=== PATIENT | male | born 1965 | race African-American/Black ===

== ENCOUNTER 2020-03-11 18:06 | Emergency (ER) | payer MEDICAID ==
[~2020-03-11] VITALS: Ht 175.3 cm; Wt 63.0 kg
[2020-03-11] MEDS ORDERED: KETOROLAC 30MG/ML VIAL IV STA (18:37)
[2020-03-11] MEDS ORDERED: SODIUM CHLORIDE 0.9% 1,000 ML IV ONE (18:37)
[2020-03-11 19:00] LABS: CHLORIDE 109 mEq/L (98-107)
[2020-03-11 19:02] LABS: INR 1.1; PROTHROMBIN TIME 11.9 sec (9.6-11.0)
[2020-03-11 19:06] LABS: BASOPHILS % 0.6 % (0.0-2.0); EOSINOPHILS % 0.3 % (0.0-5.0); HEMATOCRIT. 39.4 % (42.0-52.0); HEMOGLOBIN. 13.2 g/dL (14.0-18.0); LYMPHOCYTES % 33.5 % (20.0-50.0); MEAN CORPUSCULAR HEMOGLOBIN 31.5 pg (28.0-32.0); MEAN CORPUSCULAR VOLUME 94.1 fL (80.0-94.0); MEAN PLATELET VOLUME 8.7 fl (7.4-10.4); MONOCYTES % 10.2 % (2.0-8.0); NEUTROPHILS % 55.4 % (40.0-76.0); PLATELET 240 x1000/uL (130-400); RED BLOOD CELL COUNT 4.19 mill/uL (4.7-6.1); RED CELL DISTRIBUTION WIDTH 14.2 % (11.6-14.6)
[2020-03-11 19:12] LABS: CLARITY URINE CLOUDY (CLEAR); COLOR URINE DARK YELLOW (YELLOW); KETONES URINE 1+ (NEGATIVE); LEUKOCYTE ESTERASE URINE TRACE (NEGATIVE); NITRITE URINE NEGATIVE (NEGATIVE); OCCULT BLOOD URINE NEGATIVE (NEGATIVE); PROTEIN URINE 2+ (NEGATIVE); SPECIFIC GRAVITY URINE 1.031 (1.005-1.030)
[2020-03-11 19:28] LABS: *BARBITURATES SCREEN URINE NEGATIVE (NEGATIVE); *BENZODIAZEPINES SCREEN URINE NEGATIVE (NEGATIVE); *COCAINE SCREEN URINE NEGATIVE (NEGATIVE)
[2020-03-11 19:29] LABS: *AMPHETAMINES SCREEN URINE PRESUMTIVE POSITIVE (NEGATIVE); CANNABINOID URINE SCREEN NEGATIVE (NEGATIVE); METHADONE URINE SCREEN NEGATIVE (NEGATIVE); OPIATES URINE SCREEN NEGATIVE (NEGATIVE); PHENCYCLIDINE URINE SCREEN NEGATIVE (NEGATIVE)
[2020-03-11 19:30] VITALS: BP 97/56
== END 2020-03-11 21:40 | disposition home or self-care (01) ==
LOC: ER 18:06
DX: N28.9 Disorder of kidney and ureter, unspecified (principal); Z98.890 Other specified postprocedural states
CPT/HCPCS: 36415; 76770; 80053; 80305; 81003; 83690; 85025; 85610; 96374; 99284; J1885; J7030

== ENCOUNTER 2020-11-11 18:13 | Emergency (ER) | payer MEDICAID ==
[~2020-11-11] VITALS: Ht 180.3 cm; Wt 68.0 kg
[2020-11-11] MEDS ORDERED: HYDR-4233 TP (18:42)
[2020-11-11 19:14] VITALS: BP 122/77
== END 2020-11-11 19:15 | disposition home or self-care (01) ==
LOC: ER 18:13
DX: F22 Delusional disorders (principal)
CPT/HCPCS: 99283

== ENCOUNTER 2022-12-06 00:58 | Emergency (ER) | payer MEDICAID ==
[~2022-12-06] VITALS: Ht 165.1 cm; Wt 68.0 kg
[~2022-12-06 00:58] MED LIST: OLAN10TA72 MT; SULF1TAB47 MT
[2022-12-06 01:45] LABS: CLARITY URINE CLEAR (CLEAR); COLOR URINE YELLOW (YELLOW); KETONES URINE NEGATIVE (NEGATIVE); LEUKOCYTE ESTERASE URINE 1+ (NEGATIVE); NITRITE URINE NEGATIVE (NEGATIVE); OCCULT BLOOD URINE NEGATIVE (NEGATIVE); PH URINE 6.5 (4.5-8.0); PROTEIN URINE NEGATIVE (NEGATIVE); UROBILINOGEN URINE 0.2 E.U./dL (0.2-1.0)
[2022-12-06] MEDS ORDERED: TAMSULOSIN HCL 0.4MG SR CAPSULE PO ONE (01:45)
[2022-12-06] MEDS ORDERED: ACETAMINOPHEN 325MG TABLET PO ONE (01:45)
[2022-12-06] MEDS ORDERED: KETOROLAC 30MG/ML VIAL IM ONE (01:45)
[2022-12-06 02:30] VITALS: BP 159/120
[2022-12-06] MEDS ORDERED: TOPUD MT (04:00)
== END 2022-12-06 04:47 | disposition home or self-care (01) ==
LOC: ER 00:58
DX: R10.31 Right lower quadrant pain (principal); N13.30 Unspecified hydronephrosis; F15.10 Other stimulant abuse, uncomplicated; Z85.79 Personal history of other malignant neoplasms of lymphoid, hematopoietic and related tissues; Z21 Asymptomatic human immunodeficiency virus [HIV] infection status
CPT/HCPCS: 74176; 81003; 96372; 99285; J1885

== ENCOUNTER 2022-12-12 10:00 | Inpatient (IN) | payer MEDICAID ==
[2022-12-12] VITALS: BP 143/111
[~2022-12-12] VITALS: Ht 175.3 cm; Wt 59.4 kg
[~2022-12-12 10:00] MED LIST changes: +TOPUD MT
[2022-12-12] MEDS ORDERED: MORPHINE SULFATE 4 MG/ML CPJ (NOT FOR IM USE) IV ONE (10:45)
[2022-12-12 11:13] LABS: BASOPHILS % 0.5 % (0.0-2.0); EOSINOPHILS % 0.6 % (0.0-5.0); HEMATOCRIT. 32.5 % (42.0-52.0); HEMOGLOBIN. 10.3 g/dL (14.0-18.0); LYMPHOCYTES % 43.9 % (20.0-50.0); MEAN CORPUSCULAR HEMOGLOBIN 27.7 pg (28.0-32.0); MEAN CORPUSCULAR VOLUME 87.5 fL (80.0-94.0); MEAN PLATELET VOLUME 8.3 fl (7.4-10.4); MONOCYTES % 9.5 % (2.0-8.0); NEUTROPHILS % 45.5 % (40.0-76.0); PLATELET 274 x1000/uL (130-400); RED BLOOD CELL COUNT 3.71 mill/uL (4.7-6.1); RED CELL DISTRIBUTION WIDTH 14.8 % (11.6-14.6)
[2022-12-12 11:24] LABS: CHLORIDE 109 mEq/L (98-107)
[2022-12-12 11:28] LABS: INR 1.2
[2022-12-12] MEDS ORDERED: SODIUM CHLORIDE 0.9% 1,000 ML IV ONE (12:00)
[2022-12-12] MEDS ORDERED: CALCIUM GLUCONATE 100MG/ML 10ML VIAL IV ONE (12:15)
[2022-12-12] MEDS ORDERED: INSULIN REGULAR (HUMULIN R) 300UNITS/3ML VIAL IV ONE (12:15)
[2022-12-12] MEDS ORDERED: SODIUM POLYSTYRENE SULFONATE 15 G/60 ML BOT PO ONE (12:15)
[2022-12-12] MEDS ORDERED: DEXTROSE 50% WATER 50ML SYRINGE IV ONE (12:15)
[2022-12-12] MEDS ORDERED: CALCIUM GLUCONATE 2,000 MG in DEXT 5% WATER 90 ML IV NR (12:22)
[2022-12-12] MEDS: MORPHINE SULFATE 4 MG/ML CPJ (NOT FOR IM USE) IV SCH ×2 (12:36→13:15)
[2022-12-12] MEDS ORDERED: GUAIFENESIN 200MG/10ML SUGAR FREE UDC PO PRN (14:00)
[2022-12-12] MEDS ORDERED: ENOXAPARIN 40MG/0.4ML SYR SUBCUT SCH (14:00)
[2022-12-12] MEDS ORDERED: ONDANSETRON HCL 4MG/2ML INJ IV PRN (14:00)
[2022-12-12] MEDS ORDERED: DOCUSATE SODIUM 100MG CAPSULE PO PRN (14:00)
[2022-12-12] MEDS ORDERED: IPRATROPIUM/ALBUTEROL 0.5-3(2.5)MG/3ML NEB HHN PRN (14:00)
[2022-12-12] MEDS ORDERED: CLONIDINE 0.1MG TABLET PO PRN (14:00)
[2022-12-12 14:03] LABS: CLARITY URINE CLEAR (CLEAR); COLOR URINE YELLOW (YELLOW); KETONES URINE NEGATIVE (NEGATIVE); LEUKOCYTE ESTERASE URINE 1+ (NEGATIVE); NITRITE URINE NEGATIVE (NEGATIVE); OCCULT BLOOD URINE 1+ (NEGATIVE); PH URINE 7.5 (4.5-8.0); PROTEIN URINE NEGATIVE (NEGATIVE); SPECIFIC GRAVITY URINE 1.011 (1.005-1.030); UROBILINOGEN URINE 0.2 E.U./dL (0.2-1.0)
[2022-12-12 14:51] LABS: BG BASE EXCESS -3.9 mmol/L (-2.0-2.0); BG CARBOXYHEMOGLOBIN 0.4 % (0.5-1.5); BG DEOXYHEMOGLOBIN 1.8 % (0.0-5.0); BG FRACTION INSPIRED OXYGEN 100; BG HCO3 ACT 19.8 mmol/L (22.0-26.0); BG METHEMOGLOBIN 0.2 % (0.0-1.5); BG OXYGEN SATURATION 98.2 % (92.0-98.5); BG OXYHEMOGLOBIN 97.6 % (94.0-97.0); BG PCO2 31.8 mmHg (35.0-45.0); BG PH 7.413 (7.350-7.450); BG PO2 119.3 mmHg (75.0-100.0); BG SAMPLE SITE RIGHT BRACHIAL; BG TOTAL HEMOGLOBIN 11.8 g/dL (12.0-18.0); BG VENT MODE MASK - NRB
[2022-12-12] MEDS ORDERED: IPRATROPIUM/ALBUTEROL 0.5-3(2.5)MG/3ML NEB HHN NR (15:00)
[2022-12-12] MEDS ORDERED: FUROSEMIDE 40MG/4ML VIAL IVP NR (15:30)
[2022-12-12] MEDS ORDERED: PIPERACILLIN/TAZ 3.375G PREMIX 50 ML IV NR (15:45)
[2022-12-12] MEDS ORDERED: ACETAMINOPHEN 325MG TABLET PO PRN (17:30)
[2022-12-12] MEDS ORDERED: MORPHINE SULFATE 2 MG/ML CPJ (NOT FOR IM USE) IV PRN (17:30)
[2022-12-12] MEDS ORDERED: NALOXONE HCL 0.4MG/ML VIAL IV PRN (17:45)
[2022-12-12 18:48] LABS: PHOSPHORUS 5.3 mg/dL (2.5-4.9); TOTAL IRON BINDING CAPACITY 297 ug/dL (250-450)
[2022-12-12] MEDS: TAMSULOSIN HCL 0.4MG SR CAPSULE PO SCH (20:58)
[2022-12-12 22:03] LABS: *AMPHETAMINES SCREEN URINE NEGATIVE (NEGATIVE); *BARBITURATES SCREEN URINE NEGATIVE (NEGATIVE); *BENZODIAZEPINES SCREEN URINE NEGATIVE (NEGATIVE); *COCAINE SCREEN URINE NEGATIVE (NEGATIVE); CANNABINOID URINE SCREEN NEGATIVE (NEGATIVE); METHADONE URINE SCREEN NEGATIVE (NEGATIVE); OPIATES URINE SCREEN NEGATIVE (NEGATIVE); PHENCYCLIDINE URINE SCREEN NEGATIVE (NEGATIVE)
[2022-12-12 23:45] VITALS: BP 143/111
[2022-12-13] VITALS (9 sets, daily range): BP systolic 116–147; BP diastolic 82–108
[2022-12-13] MEDS ORDERED: PIPERACILLIN/TAZOBACTAM 3.375 G in DEXTROSE 5% WATER 50 ML IV SCH (03:00)
[2022-12-13] MEDS ORDERED: SODIUM POLYSTYRENE SULFONATE 15 G/60 ML BOT PO NR (09:00)
[2022-12-13 09:57] LABS: BASOPHILS % 0.6 % (0.0-2.0); EOSINOPHILS % 0.2 % (0.0-5.0); LYMPHOCYTES % 23.7 % (20.0-50.0); MEAN CORPUSCULAR VOLUME 86.7 fL (80.0-94.0); MEAN PLATELET VOLUME 8.7 fl (7.4-10.4); MONOCYTES % 10.2 % (2.0-8.0); NEUTROPHILS % 65.3 % (40.0-76.0); PLATELET 250 x1000/uL (130-400); RED BLOOD CELL COUNT 3.91 mill/uL (4.7-6.1); RED CELL DISTRIBUTION WIDTH 14.9 % (11.6-14.6)
[2022-12-13 10:15] LABS: CHLORIDE 108 mEq/L (98-107)
[2022-12-13 10:29] LABS: HDL CHOLESTEROL 42 mg/dL (40-59); LDL CHOLESTEROL 64 mg/dL (5-100); PHOSPHORUS 5.1 mg/dL (2.5-4.9); T4 FREE 1.15 ng/dL (0.76-1.46); TOTAL IRON BINDING CAPACITY 251 ug/dL (250-450)
[2022-12-13] MEDS: POLYETHYLENE GLYCOL 3350 (17GM) 1 DOSE PACK PO PRN ×3 (10:43→10:47)
[2022-12-13] MEDS: AZITHROMYCIN 500 MG TABLET PO SCH (10:43)
[2022-12-13] MEDS: PANTOPRAZOLE 40MG DR TABLET PO SCH (10:44)
[2022-12-13] MEDS ORDERED: IOHEXOL-350 100 ML BOTTLE ONE (14:34)
[2022-12-13] MEDS: SENNOSIDES/DOCUSATE SOD 8.6/50MG TABLET PO SCH ×2 (15:12→16:54)
[2022-12-13] MEDS: ENOXAPARIN 30MG/0.3ML SYR SUBCUT SCH (15:13)
[2022-12-13] MEDS ORDERED: ALBUTEROL (0.083%) 2.5MG/3ML NEB HHN PRN (15:15)
[2022-12-13] MEDS ORDERED: IPRATROPIUM BROMIDE (0.02%) 0.5MG/2.5ML NEB HHN PRN (15:15)
[2022-12-13] MEDS ORDERED: MAGNESIUM 2 G PREMIX 50 ML IV NR (16:00)
[2022-12-13] MEDS ORDERED: FUROSEMIDE 40MG/4ML VIAL IVP SCH (16:30)
[2022-12-13] MEDS: CARVEDILOL 6.25 MG TABLET PO SCH (21:02)
[2022-12-13] MEDS: TAMSULOSIN HCL 0.4MG SR CAPSULE PO SCH (21:02)
[2022-12-13] MEDS: PIPERACILLIN/TAZOBACTAM 3.375 G in DEXTROSE 5% WATER 50 ML IV SCH (21:25)
[2022-12-14] VITALS (12 sets, daily range): BP systolic 91–146; BP diastolic 50–96
[2022-12-14 09:07] LABS: % CD 3 POS. LYMPHOCYTES 91.4 % (57.5-86.2); % CD 4 POS. LYMPHOCYTES 9.6 % (30.8-58.5); ABSOLUTE CD 3 823 /uL (622-2402); ABSOLUTE CD 4 HELPER 86 /uL (359-1519); ABSOLUTE CD 8 SUPPRESSOR 720 /uL (109-897); ABSOLUTE LYMPHOCYTES 0.9 x10E3/uL (0.7-3.1); ABSOLUTE MONOCYTES 0.4 x10E3/uL (0.1-0.9); ABSOLUTE NEUTROPHILS 2.7 x10E3/uL (1.4-7.0); BASOPHILS 1 % (Not Estab.); CD4/CD8 RATIO 0.12 (0.92-3.72); HEMATOCRIT 32.5 % (37.5-51.0); HEMOGLOBIN 11.3 g/dL (13.0-17.7); IMMATURE GRANULOCYTES 0 % (Not Estab.); LYMPHOCYTES 23 % (Not Estab.); MEAN CORPUSCULAR HEMOGLOBIN 29.4 pg (26.6-33.0); MEAN CORPUSCULAR HGB CONC. 34.8 g/dL (31.5-35.7); MEAN CORPUSCULAR VOLUME 85 fL (79-97); MONOCYTES 10 % (Not Estab.); NEUTROPHILS 66 % (Not Estab.); PLATELETS 267 x10E3/uL (150-450); RBC 3.84 x10E6/uL (4.14-5.80); RED CELL DISTRIBUTION WIDTH 13.5 % (11.6-15.4); WBC 4.1 x10E3/uL (3.4-10.8)
[2022-12-14] MEDS: POLYETHYLENE GLYCOL 3350 (17GM) 1 DOSE PACK PO PRN (09:27)
[2022-12-14] MEDS: SENNOSIDES/DOCUSATE SOD 8.6/50MG TABLET PO SCH ×2 (09:28→17:12)
[2022-12-14] MEDS: PIPERACILLIN/TAZOBACTAM 3.375 G in DEXTROSE 5% WATER 50 ML IV SCH ×2 (09:28→21:13)
[2022-12-14] MEDS: AZITHROMYCIN 500 MG TABLET PO SCH (09:28)
[2022-12-14] MEDS: PANTOPRAZOLE 40MG DR TABLET PO SCH (09:28)
[2022-12-14] MEDS: CARVEDILOL 6.25 MG TABLET PO SCH (09:29)
[2022-12-14 10:36] LABS: HEMATOCRIT 32.7 % (42.0-52.0); HEMOGLOBIN 10.6 g/dL (14.0-18.0); MEAN CORPUSCULAR VOLUME 86.6 fL (80.0-94.0); PLATELET 266 x1000/uL (130-400); RED BLOOD CELL COUNT 3.78 mill/uL (4.7-6.1)
[2022-12-14 12:14] LABS: PHOSPHORUS 3.4 mg/dL (2.5-4.9)
[2022-12-14] MEDS: MAGNESIUM GLUCONATE 500MG TABLET PO SCH (12:29)
[2022-12-14] MEDS: ENOXAPARIN 30MG/0.3ML SYR SUBCUT SCH ×2 (14:30→17:13)
[2022-12-14] MEDS: SULFAMETHOXAZOLE/TRIMETHOPRIM 400/80MG TAB PO SCH (17:12)
[2022-12-14] MEDS: TAMSULOSIN HCL 0.4MG SR CAPSULE PO SCH (21:00)
[2022-12-14] MEDS: CARVEDILOL 12.5MG TABLET PO SCH (21:14)
[2022-12-15 03:08] VITALS: BP 105/62
[2022-12-15] MEDS: PANTOPRAZOLE 40MG DR TABLET PO SCH (05:46)
[2022-12-15 08:00] VITALS: BP 100/76
[2022-12-15] MEDS: SENNOSIDES/DOCUSATE SOD 8.6/50MG TABLET PO SCH ×2 (09:00→16:31)
[2022-12-15] MEDS: CARVEDILOL 12.5MG TABLET PO SCH (09:00)
[2022-12-15] MEDS: DUTASTERIDE 0.5MG CAPSULE PO SCH (09:30)
[2022-12-15] MEDS: PIPERACILLIN/TAZOBACTAM 3.375 G in DEXTROSE 5% WATER 50 ML IV SCH (09:30)
[2022-12-15] MEDS: FUROSEMIDE 40MG TABLET PO SCH (09:31)
[2022-12-15] MEDS: AZITHROMYCIN 500 MG TABLET PO SCH (09:31)
[2022-12-15] MEDS: MAGNESIUM GLUCONATE 500MG TABLET PO SCH (11:28)
[2022-12-15 12:00] VITALS: BP 114/70
[2022-12-15 13:09] LABS: HEMATOCRIT 32.6 % (42.0-52.0); HEMOGLOBIN 10.4 g/dL (14.0-18.0); MEAN CORPUSCULAR HEMOGLOBIN 27.9 pg (28.0-32.0); MEAN CORPUSCULAR VOLUME 87.9 fL (80.0-94.0); PLATELET 261 x1000/uL (130-400); RED BLOOD CELL COUNT 3.71 mill/uL (4.7-6.1); RED CELL DISTRIBUTION WIDTH 14.9 % (11.6-14.6)
[2022-12-15] MEDS ORDERED: DUTA0.5C2 PO (14:27)
[2022-12-15] MEDS ORDERED: COR12 PO (14:27)
[2022-12-15] MEDS ORDERED: SULF-292 PO (14:27)
[2022-12-15] MEDS ORDERED: FURO40TA5 PO (14:27)
[2022-12-15] MEDS ORDERED: ALBU6.7H3 INH (14:27)
[2022-12-15] MEDS: ENOXAPARIN 30MG/0.3ML SYR SUBCUT SCH (14:30)
[2022-12-15] MEDS: PIPERACILLIN/TAZOBACTAM 3.375G in DEXT 5% WATER 50ML IV SCH ×2 (15:33→23:44)
[2022-12-15 16:00] VITALS: BP 105/67
[2022-12-15] MEDS: SULFAMETHOXAZOLE/TRIMETHOPRIM 400/80MG TAB PO SCH (16:31)
[2022-12-15 16:44] LABS: FOLIC ACID (FOLATE) SERUM 7.5 ng/mL (>5.38)
[2022-12-15 20:00] VITALS: BP 117/76
[2022-12-16] VITALS: BP 118/81
[2022-12-16] MEDS: CARVEDILOL 12.5MG TABLET PO SCH ×2 (02:04→08:55)
[2022-12-16 04:00] VITALS: BP 105/72
[2022-12-16] MEDS: PANTOPRAZOLE 40MG DR TABLET PO SCH (07:07)
[2022-12-16] MEDS: PIPERACILLIN/TAZOBACTAM 3.375G in DEXT 5% WATER 50ML IV SCH ×2 (07:07→14:00)
[2022-12-16 08:00] VITALS: BP 115/81
[2022-12-16] MEDS: MAGNESIUM GLUCONATE 500MG TABLET PO SCH (08:55)
[2022-12-16] MEDS: AZITHROMYCIN 500 MG TABLET PO SCH (08:55)
[2022-12-16] MEDS: DUTASTERIDE 0.5MG CAPSULE PO SCH (08:55)
[2022-12-16] MEDS: SENNOSIDES/DOCUSATE SOD 8.6/50MG TABLET PO SCH (08:55)
[2022-12-16] MEDS: FUROSEMIDE 40MG TABLET PO SCH (08:55)
[2022-12-16 10:45] VITALS: BP 115/81
[2022-12-16 12:00] VITALS: BP 118/79
== END 2022-12-16 14:38 | disposition home health service (06) | DRG 890 ==
LOC: ER 10:16 → 5EST 12:56 → ER 23:46 → 7EST 12-15 04:07
PROVIDERS: ADMIT Internal Medicine; ATTEND Internal Medicine
DX: A41.9 Sepsis, unspecified organism (principal); B20 Human immunodeficiency virus [HIV] disease; J96.01 Acute respiratory failure with hypoxia; I50.21 Acute systolic (congestive) heart failure; J90 Pleural effusion, not elsewhere classified; C85.90 Non-Hodgkin lymphoma, unspecified, unspecified site; E44.1 Mild protein-calorie malnutrition; K80.20 Calculus of gallbladder without cholecystitis without obstruction; N13.6 Pyonephrosis; I11.0 Hypertensive heart disease with heart failure; I50.23 Acute on chronic systolic (congestive) heart failure; Z66 Do not resuscitate; N17.9 Acute kidney failure, unspecified; D64.9 Anemia, unspecified; Z20.822 Contact with and (suspected) exposure to COVID-19; E87.5 Hyperkalemia; N40.1 Benign prostatic hyperplasia with lower urinary tract symptoms; N32.0 Bladder-neck obstruction; K76.89 Other specified diseases of liver; Z77.090 Contact with and (suspected) exposure to asbestos; Z87.440 Personal history of urinary (tract) infections; Z87.442 Personal history of urinary calculi
CPT/HCPCS: 36415; 36600; 71045; 71275; 74176; 76604; 76700; 80048; 80053; 80061; 80305; 81003; 82375; 82607; 82728; 82746; 82805; 83540; 83550; 83605; 83735; 83880; 84100; 84145; 84153; 84439; 84443; 84484; 85025; 85027; 85044; 85379; 86359; 86360; 87536; 93005; 93306; 93970; 97116; 97162; 97167; 97530; 97535; 99291; J0610; J1650; J1815; J1940; J2270; J2543; J3475; J7030; J7060; Q9967; A4315; G0103

== ENCOUNTER 2023-01-17 20:17 | Emergency (ER) | payer MEDICAID ==
[~2023-01-17] VITALS: Ht 172.7 cm; Wt 73.0 kg
[~2023-01-17 20:17] MED LIST changes: +ALBU6.7H3 INH; +COR12 PO; +DUTA0.5C2 PO; +FURO40TA5 PO; +SULF-292 PO
[2023-01-17 20:20] VITALS: BP 167/118
== END 2023-01-17 22:24 | disposition home or self-care (01) ==
LOC: ER 20:17
DX: N48.89 Other specified disorders of penis (principal); Z87.440 Personal history of urinary (tract) infections; F15.10 Other stimulant abuse, uncomplicated; Z79.899 Other long term (current) drug therapy
CPT/HCPCS: 99283

== ENCOUNTER 2023-08-29 16:41 | Emergency (ER) | payer MEDICAID ==
[~2023-08-29] VITALS: Ht 170.2 cm; Wt 73.0 kg
[2023-08-29] MEDS ORDERED: IPRATROPIUM/ALBUTEROL 0.5-3(2.5)MG/3ML NEB HHN ONE (20:00)
[2023-08-29 20:07] LABS: BASOPHILS % 0.8 % (0.0-2.0); HEMATOCRIT. 30.7 % (42.0-52.0); HEMOGLOBIN. 9.7 g/dL (14.0-18.0); MEAN CORPUSCULAR HEMOGLOBIN 28.5 pg (28.0-32.0); MEAN CORPUSCULAR HGB CONC 31.6 g/dL (31.0-37.0); MEAN CORPUSCULAR VOLUME 90.3 fL (80.0-94.0); MEAN PLATELET VOLUME 8.4 fl (7.4-10.4); MONOCYTES % 11.1 % (2.0-8.0); NEUTROPHILS % 46.1 % (40.0-76.0); PLATELET 252 x1000/uL (130-400); RED CELL DISTRIBUTION WIDTH 15.1 % (11.6-14.6); WHITE BLOOD COUNT 5.9 x1000/uL (4.5-11.0)
[2023-08-29 20:23] LABS: ALANINE AMINOTRANSFERASE 12 IU/L (10-49); ALBUMIN 3.5 g/dL (3.2-4.8); ASPARTATE AMINOTRANSFERASE 19 IU/L (<34); BILIRUBIN TOTAL 0.6 mg/dL (0.1-1.0); CALCIUM 8.8 mg/dL (8.7-10.4); CARBON DIOXIDE 24 mEq/L (21-32); CHLORIDE 106 mEq/L (98-107); CREATININE 1.2 mg/dL (0.6-1.3); GLUCOSE 87 mg/dL (70-105); POTASSIUM 4.1 mEq/L (3.5-5.1); PROTEIN TOTAL 7.7 g/dL (6.0-8.3); SODIUM 139 mEq/L (136-145); TROPONIN I HIGH SENSITIVITY 36 ng/L (3.0-53); UREA NITROGEN BLOOD 12 mg/dL (9-23)
[2023-08-30 02:45] VITALS: TEMP 98.3
[2023-08-30] MEDS ORDERED: IPRATROPIUM/ALBUTEROL 0.5-3(2.5)MG/3ML NEB HHN NR (03:15)
[2023-08-30 03:40] VITALS: PULSE 100; RESP 16; O2SAT 97
[2023-08-30 04:16] LABS: TROPONIN I HIGH SENSITIVITY 32 ng/L (3.0-53)
[2023-08-30] MEDS ORDERED: GUAI600T26 MT (04:59)
[2023-08-30] MEDS ORDERED: ALBU6.7H15 INH (04:59)
[2023-08-30 05:30] VITALS: BP 137/95; PULSE 101; RESP 21
== END 2023-08-30 05:30 | disposition home or self-care (01) ==
LOC: ER 16:41
DX: J40 Bronchitis, not specified as acute or chronic (principal); I50.9 Heart failure, unspecified; F15.10 Other stimulant abuse, uncomplicated; Z87.01 Personal history of pneumonia (recurrent); Z87.440 Personal history of urinary (tract) infections; Z79.899 Other long term (current) drug therapy
CPT/HCPCS: 80053; 83880; 85025; 84484 ×2; 36415 ×2; 71045; 94640; 93005; 99285; Z7610 ×4; A4565

== ENCOUNTER 2023-09-08 06:26 | Emergency (ER) | payer MEDICAID ==
[~2023-09-08] VITALS: Ht 175.3 cm; Wt 64.0 kg
[~2023-09-08 06:26] MED LIST changes: +ALBU6.7H15 INH; +GUAI600T26 MT
[2023-09-08 06:38] VITALS: O2SAT 100
[2023-09-08] MEDS ORDERED: SULF1TAB48 PO (07:19)
[2023-09-08] MEDS ORDERED: CEPH500C2 PO (07:19)
[2023-09-08] MEDS ORDERED: IBUP-2028 PO (07:19)
[2023-09-08 07:43] VITALS: BP 159/98; PULSE 89; RESP 16; TEMP 98.5
== END 2023-09-08 07:50 | disposition home or self-care (01) ==
LOC: ER 06:26
DX: L02.214 Cutaneous abscess of groin (principal); L03.314 Cellulitis of groin; J45.909 Unspecified asthma, uncomplicated; F15.10 Other stimulant abuse, uncomplicated; Z87.01 Personal history of pneumonia (recurrent); Z87.440 Personal history of urinary (tract) infections
CPT/HCPCS: 99281; 99283